=== PATIENT | male | born 1990 | race Caucasian/White ===

== ENCOUNTER 2018-06-30 15:18 | Emergency (ER) | payer SELFPAY ==
[2018-06-30] MEDS ORDERED: HYDROmorphone 1 MG/ML Syringe IM ONE (15:39)
[2018-06-30] MEDS ORDERED: Promethazine 25 MG/ML SDV IM ONE (15:39)
--- NOTE | 2018-06-30 15:44 | EDM.PDOC ---
ED HPI GENERAL MEDICAL PROBLEM - General Chief Complaint: Back Pain or Injury Stated Complaint: BACK PAIN Time Seen by Provider: 06/30/18 15:39 Source of Information: Reports: Patient, Family (spouse3) History Limitations: Reports: No Limitations - History of Present Illness INITIAL COMMENTS - FREE TEXT/NARRATIVE: 27-year-old male presents to the ED with acute exacerbation of chronic low back pain. Patient states he had a herniated disc at L5-S1 since 2014. This was a work related injury. 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 He has chronic low back pain but unfortunately he slipped on ice last night and landed hard on his buttock tailbone area. Linear into a sinus at that time. He fell directly on his but talks and prevented injury to his head. He has been taking ibuprofen since the fall and thought it was just going to be bruised. However today he can barely walk and has pain rating down his right leg in the L5 nerve or distribution to his large toe. Is worse on the right side as compared to the left. Has bowel and bladder function are okay. Onset: Sudden Onset Date: 06/29/18 Onset Time: 17:30 Duration: Hour(s): Location: Reports: Back (Diffuse low back pain after falling on the ice last night) Quality: Reports: Other (Felix throbbing aching pain lower back rating down the right leg worse than the left leg.) Severity: Severe (9 out of 10) Improves with: Reports: Medication (He has taken 800 mg of viral prodrome every 6 hours since time of injury with minimal relief) Worsens with: Reports: Other (Standing or walking) Context: Reports: Trauma (Slipped and fell on the ice last night landing directly on his tailbone or sacrum.). Denies: Activity, Exercise, Lifting, Sick Contact Associated Symptoms: Denies: Confusion, Chest Pain, Cough, cough w sputum, Diaphoresis, Fever/Chills, Headaches, Loss of Appetite, Malaise, Nausea/Vomiting , Rash, Seizure, Shortness of Breath, Syncope Treatments [employer]: Reports: NSAIDS (100 mg of Motrin every 6 hours) Lower Back Pain Score (Numeric/FACES): 8 - Related Data Allergies Allergy/AdvReac Type Severity Reaction Status Date / Time No Known Allergies Allergy Verified 06/30/18 15:27 Home Meds: Home Meds Ibuprofen [Ibu] 800 mg PO Q8H PRN 06/30/18 [History] oxyCODONE HCl/Acetaminophen [Percocet 5-325 mg Tablet] 1 - 2 each PO Q4H PRN # 24 tablet 06/30/18 [Rx] predniSONE [Deltasone] 20 mg PO BID #14 tablet 06/30/18 [Rx] Past Medical History Musculoskeletal History: Reports: Back Pain, Chronic (Had a work related injury where a palate of beer fell on top of him. 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 acute L5 disc herniation in his lower back is occurred in 2014.), Fracture Social & Family History - Family History Family Medical History: Noncontributory - Tobacco Use Smoking Status *Q: Current Every Day Smoker Years of Tobacco use: 15 Packs/Tins Daily: 0.5 - Caffeine Use Caffeine Use: Reports: Soda - Recreational Drug Use Recreational Drug Use: No - Living Situation & Occupation Occupation: Employed ED ROS GENERAL - Review of Systems Review Of Systems: See Below Constitutional: Denies: Fever, Chills, Malaise, Weakness, Fatigue HEENT: Reports: No Symptoms Respiratory: Reports: No Symptoms Cardiovascular: Reports: No Symptoms Endocrine: Reports: No Symptoms GI/Abdominal: Reports: No Symptoms : Reports: No Symptoms Musculoskeletal: Reports: Back Pain Skin: Reports: No Symptoms Neurological: Reports: Other (Radicular pain in both lower extremities worse on the right side as compared to the left. Radiates only down to his toes) Psychiatric: Reports: No Symptoms Hematologic/Lymphatic: Reports: No Symptoms Immunologic: Reports: No Symptoms ED EXAM,LOWER BACK PAIN/INJURY - Physical Exam Exam: See Below Exam Limited By: No Limitations General Appearance: Alert, WD/WN, Moderate Distress (Appears to be in a good deal of pain as he has a hard time getting off the gurney to stand for examination) Eye Exam: Bilateral Eye: Normal Inspection Neck: Normal Inspection, Supple, Non-Tender, Full Range of Motion. No: Lymphadenopathy (L), Lymphadenopathy (R) Back Exam: Muscle Spasm (Mild paraspinal muscle spasm from L2-L5 on the left side. L4-L5 muscle spasm on the right side. Vertebral tenderness over the facet joints from L3-L5 bilaterally worse on the left as compared to the right.), Other (There is pain on palpation throughout the left sacroiliac joint. The sacrum particular the curvature to the coccyx is tender but I could find no abrasions or contusions in in this area.) Extremities: Normal Inspection, Normal Range of Motion, Non-Tender, No Pedal Edema Neurological: Alert, Normal Mood/Affect, CN II-XII Intact, Normal Reflexes, Oriented x 3 DTR - Lower Extremities: 1+: Ankle (R), 2+: Knee (R), Knee (L), Ankle (L) Psychiatric: Normal Affect Skin Exam: Warm, Dry, Intact, Normal Color, No Rash Course - Vital Signs Last Recorded V/S: Last Vital Signs Temp 37.4 C 06/30/18 15:23 Pulse 85 06/30/18 15:23 Resp 18 06/30/18 15:23 BP 123/70 06/30/18 15:23 Pulse Ox 97 06/30/18 15:23 - Orders/Labs/Meds Meds: Medications Discontinued Medications Generic Name Dose Route Start Last Admin Trade Name Deisy PRN Reason Stop Dose Admin Hydromorphone HCl 1 mg 06/30/18 15:39 06/30/18 15:58 Dilaudid IM 06/30/18 15:40 1 mg ONETIME ONE Administration Promethazine HCl 25 mg 06/30/18 15:39 06/30/18 15:58 Phenergan IM 06/30/18 15:40 25 mg ONETIME ONE Administration - Radiology Interpretation Free Text/Narrative:: 27-year-old male presents the ED after slipping and falling on ice last night and landing hard on his buttocks/sacrum. has a pre-existing injury from a work-related injury in 2014 with an L5 disc herniation. Low back pain flares up periodically. Since falling ascites and radicular pain traveling down his both legs is little worse on the right side down to his big toe. Worse with standing and getting up out of bed. He's been using 800 mg of Motrin every 6 hours since the fall. He thought that he was just going to be banged up but this morning he could barely get out of bed. Denies hitting his head or hurting his upper back or ribs. His bowel function is normal. Emanation shows paraspinal muscle spasm bilaterally slightly worse on the left as compared to the right. Facet joint tenderness L3 L5 bilaterally. Moderate tenderness in the left sacroiliac joint as well. There is tenderness over the sacrum is not well but no abrasions or contusions are showing up at this time. Plan I am injection of Dilaudid 1 mg with Phenergan 25 mg IM. We'll enhanced CT scan done of the lumbar spine - Re-Assessments/Exams Free Text/Narrative Re-Assessment/Exam: 06/30/18 16:11 CT lumbar spine is been carried out. Say deformity of the superior endplate of L5 with prominent likely Schmorl's node though there appears that the Coumadin minor compression fracture in this area which would be old. There is also extensive disc space height loss at L5-S1. No new compression fractures are evident and the neuroforamina appear patent without nerve root impingement. No fractures are evident within the sacrum either. At this time patient be treated conservatively continuing Motrin 600 mg every 6 hours. Deltasone 20 mg twice daily for the next 7 days to relieve pain and inflammation Percocet 5/325 one or 2 every 4-6 hours for pain relief 06/30/18 16:30 radiologist report is now available on the lumbar spine. At T12- L1 slight posterior disc space narrowing is seen posterior disc is maintained no central canal stenosis or neural foraminal stenosis is identified. At L1-2 level slight posterior disc space narrowing is seen very slight posterior disc bulge is seen but posterior disc maintains a concave margin. No central canal stenosis or foraminal stenosis is identified. At L2-L3 level very minimal circumferential disc bulge is noted posterior disc maintains a concave margin. Again no no neural foraminal or central canal stenosis is identified. L3-L4 minimal circumferential disc bulge is seen posterior disc maintains a concave margin. No central canal stenosis or neural foraminal stenosis is identified at L4-L5 very slight circumferential disc bulge is seen posterior disc maintains a post multiplanar margin. No central canal stenosis or neural foraminal stenosis is seen. At L5-S1 slight posterior disc space narrowing is seen. Mild diffuse posterior disc bulges noted. No central canal stenosis is seen neuroforamina felt to be pain with the nerve roots exit no fractures identified no subluxation identified. Departure - Departure Time of Disposition: 16:32 Disposition: Home, Self-Care 01 Condition: Fair Clinical Impression: Lumbar back pain with radiculopathy affecting lower extremity - Discharge Information *PRESCRIPTION DRUG MONITORING PROGRAM REVIEWED*: Not Applicable *COPY OF PRESCRIPTION DRUG MONITORING REPORT IN PATIENT YASH: Not Applicable Prescriptions: oxyCODONE HCl/Acetaminophen [Percocet 5-325 mg Tablet] 1 - 2 each PO Q4H PRN # 24 tablet PRN Reason: pain relief. predniSONE [Deltasone] 20 mg PO BID #14 tablet Instructions: Back Pain, Adult, [id number] Referrals: PCP,None [Primary Care Provider] - Forms: ED Department Discharge Additional Instructions: Evaluation the emergency room today in regards to slip and fall on ice last evening with direct blow to the sacrum and injury to the lower back. Pre- existing injury to L5-S1 disc space appreciated since 2014 accident you are much more stiff and sore today than you were last night and likely will be worse tomorrow. You have identified some pain rating down the extremities to the feet. This may be just referred pain from the sacroiliac joints versus disc. CT of your lower back shows no new compression fractures or broken bones in the sacrum. It also shows most of the nerve roots are free from a disc bulge or impingement. This means that he should gradually get better over the next 3- 7 days. Sometimes 10 days to heal completely. Treatment is continue Motrin 600 mg every 6 hours to relieve pain and inflammation. Start Deltasone 20 mg twice daily usually breakfast and supper for the next 7 days to reduce inflammation which in turn then relieves pain. Pain pills Percocet 09/09/24 one or 2 every 4-6 hours for pain relief for the next 2-3 days. She's often cause significant constipation. If this is an issue for you should start MiraLAX powder 17 g or 1 scoop or 1 packet daily to prevent constipation from occurring while taking these medications. To excuse her from the workplace until next Wednesday as I suspect it will take that long for your back to settle down to be able to drive a truck of course follow-up as indicated if the pain in your extremities increases over the next 7 days versus gradually improves.
--- NOTE | 2018-06-30 16:26 | CT ---
CT lumbar spine Technique: Multiple axial sections were obtained from above T12-L1 disc inferiorly through the L5-S1 disc. Reconstructed coronal and sagittal images were obtained. Comparison: No prior lumbar spine imaging. Findings: T12-L1: Slight posterior disc space narrowing is seen. Posterior disc is maintained. No central canal stenosis or neural foraminal stenosis is seen. L1-2: Slight posterior disc space narrowing is seen. Very slight posterior disc bulge is seen but posterior disc maintains a concave margin. No central canal stenosis or neural foraminal stenosis is seen. L2-3: Very minimal circumferential disc bulge is noted. Posterior disc maintains a concave margin. No central canal stenosis or neural foraminal stenosis is seen. L3-4: Minimal circumferential disc bulge is seen. Posterior disc maintains concave margin. No central canal stenosis or neural foraminal stenosis is seen. L4-5: Very slight circumferential disc bulge is seen. Posterior disc maintains a mostly planar margin. No central canal stenosis or neural foraminal stenosis is seen. L5-S1: Slight posterior disc space narrowing is seen. Mild diffuse posterior disc bulge is noted. No central canal stenosis is seen. Neural foramina are felt to be patent where the nerve roots exit. No fracture is seen. No abnormal subluxation is identified. Impression: 1. Minimal degenerative change as noted above. No focal disc herniation is appreciated. No central canal stenosis or neural foraminal stenosis is seen. Diagnostic code #2
== END 2018-06-30 16:51 | disposition home or self-care (01) ==
LOC: JD.ED 15:18
DX: M54.16 Radiculopathy, lumbar region (principal); F17.210 Nicotine dependence, cigarettes, uncomplicated
CPT/HCPCS: 72131; 96372; 99283; J1170; J2550